=== PATIENT | female | born 2000 | race Caucasian/White ===

== ENCOUNTER 2022-10-24 15:21 | Emergency (ER) | payer MEDICAID ==
[~2022-10-24] VITALS: Ht 160 cm; Wt 97.5 kg
--- NOTE | 2022-10-24 15:25 | NUR ---
[id number]. NO SHOW.
[2022-10-24 15:36] VITALS: BP 121/60
--- NOTE | 2022-10-24 19:12 | NUR ---
CALLED X2'S BY AYALA NO ANSWER. LWBS
== END 2022-10-24 15:25 | disposition left against medical advice (07) ==
LOC: MED 15:21
DX: R10.9 Unspecified abdominal pain (principal); Z53.21 Procedure and treatment not carried out due to patient leaving prior to being seen by health care provider